=== PATIENT | female | born 1950 | race Caucasian/White ===

== ENCOUNTER 2017-10-22 10:53 | Inpatient (IN) ==
[2017-10-22 13:58] LABS: Apearance,Urine CLEAR (Clear); Basophils % 0.6 % (0.0-0.8); Bilirubin,Urine Negative (Negative); Blood, Urine Negative (Negative); Eosinophils % 0.6 % (0.00-10.9); Glucose,Urine (UA) Negative (Negative); Hematocrit 42.6 VOL% (35.7-47.0); Hemoglobin 14.1 GM/DL (12.0-16.0); Immature Granulocytes % 0.3 %; Immature Granulocytes Absolute 0.02 #; Ketones,Urine Negative (Negative); Lymphocytes # 1.9 10*3/uL (1.4-4.0); Lymphocytes % 29.3 % (21.3-54.2); Mean Corpuscular HGB Conc 33.1 GM/DL (32-36); Mean Corpuscular Hemoglobin 31 PG (27-34); Mean Corpuscular Volume 94.9 FL (87-102); Mean Platelet Volume 11.5 FL (9.6-12.0); Monocytes # 0.6 10*3/uL (0.11-0.8); Monocytes % 8.7 % (1.7-12.7); Neutrophils # 3.9 10*3/uL (1.4-7.4); Neutrophils % 60.5 % (38.7-73.9); Nitrite,Urine Negative (Negative); Platelet Count 210 T/CUMM (130-400); Protein,Urine Negative; Red Blood Count 4.49 MC/CUMM (3.8-5.5); Red Cell Distribution Width 13.2 % (9.3-17.3); Squamous Epithelial Cell,Urine Occasional /HPF (0-10); Urine Color Straw (Yellow); Urine Specific Gravity 1.002 (1.001-1.035); Urine Urobilinogen < 2.0 EU/DL (0.2-1.0); WBC,Urine <1 /HPF (0-6); White Blood Count 6.4 T/CUMM (4-12)
[2017-10-22 14:21] LABS: Alanine Aminotransferase 34 U/L (13-56); Albumin 4.5 G/DL (3.4-5.0); Alkaline Phosphatase 101 U/L (45-117); Aspartate Amino Transferase 27 U/L (0-37); Blood Urea Nitrogen 12 MG/DL (7-18); Glucose 146 MG/DL (74-106); Magnesium 2.2 MG/DL (1.8-2.4); Osmolality,Calculated 279.5 MOS/KG (273-304); Potassium 4.9 MMOL/L (3.5-5.1); Sodium 139 MMOL/L (136-145); Total Protein 7.1 G/DL (6.4-8.3); Troponin I Only < 0.015 NG/ML (0.00-0.045)
[2017-10-22] MEDS ORDERED: LACTULOSE 20 GM/30 ML UDCUP PO PRN (15:40)
[2017-10-22] MEDS ORDERED: ONDANSETRON 4 MG/2 ML VIAL IV PRN (15:40)
[2017-10-22] MEDS ORDERED: ACETAMINOPHEN 325 MG TABLET PO PRN (15:40)
[2017-10-22] MEDS: MULTIVITAMIN (CENTRUM) TABLET PO SCH (20:32)
[2017-10-22] MEDS: ASPIRIN EC 81 MG TABLET PO SCH (20:32)
[2017-10-22] MEDS: ENOXAPARIN 40 MG/0.4 ML SYRINGE SUBCUT SCH (20:32)
[2017-10-22] MEDS: OMEGA 3 ACID ETHYL ESTERS 1 GM CAPSULE PO SCH (20:32)
[2017-10-23] MEDS ORDERED: DIAZEPAM 5 MG TABLET PO ONE (05:00)
[2017-10-23] MEDS ORDERED: diphenhydrAMINE CAP 25 MG CAPSULE PO ONE (05:00)
[2017-10-23] MEDS: SODIUM CHLORIDE 0.45% 1,000 ML IV SCH ×2 (05:23→21:01)
[2017-10-23] MEDS ORDERED: HEPARIN/NACL 0.9% 2 UNITS/ML 2,000 ML IV ONE ×2 (07:16→11:52)
[2017-10-23] MEDS: PANTOPRAZOLE 40 MG TABLET PO SCH ×2 (07:25→08:41)
[2017-10-23] MEDS ORDERED: HYDROmorphone 2 MG/1 ML VIAL ONE ×2 (08:07→11:58)
[2017-10-23] MEDS ORDERED: MIDAZOLAM 2 MG/2 ML VIAL ONE ×2 (08:07→11:58)
[2017-10-23] MEDS ORDERED: LIDOCAINE 2% 20 ML VIAL ONE (08:07)
[2017-10-23 08:19] LABS: Basophils % 0.5 % (0.0-0.8); Eosinophils % 0.7 % (0.00-10.9); Hematocrit 39.2 VOL% (35.7-47.0); Hemoglobin 13.2 GM/DL (12.0-16.0); Immature Granulocytes % 0.7 %; Immature Granulocytes Absolute 0.04 #; Lymphocytes # 1.8 10*3/uL (1.4-4.0); Lymphocytes % 32.3 % (21.3-54.2); Mean Corpuscular HGB Conc 33.7 GM/DL (32-36); Mean Corpuscular Hemoglobin 31 PG (27-34); Mean Corpuscular Volume 91.4 FL (87-102); Mean Platelet Volume 11.1 FL (9.6-12.0); Monocytes # 0.5 10*3/uL (0.11-0.8); Neutrophils # 3.2 10*3/uL (1.4-7.4); Neutrophils % 56.8 % (38.7-73.9); Platelet Count 203 T/CUMM (130-400); Red Blood Count 4.29 MC/CUMM (3.8-5.5); Red Cell Distribution Width 13.3 % (9.3-17.3); White Blood Count 5.6 T/CUMM (4-12)
[2017-10-23 08:36] LABS: Calcium 9.1 MG/DL (8.5-10.1); Osmolality,Calculated 284.1 MOS/KG (273-304); Potassium 4.1 MMOL/L (3.5-5.1); Risk Ratio 2.94
[2017-10-23] MEDS ORDERED: LIDOCAINE 1% 20 ML VIAL ONE (11:52)
[2017-10-23] MEDS ORDERED: HEPARIN 5,000 UNIT/1 ML VIAL ONE (12:23)
[2017-10-23] MEDS ORDERED: NITROGLYCERIN SL 0.4 MG TABLET SL PRN (13:14)
[2017-10-23] MEDS ORDERED: ONDANSETRON 4 MG/2 ML VIAL IV PRN (13:14)
[2017-10-23] MEDS: COENZYME Q10 100 MG CAPSULE PO SCH (13:50)
[2017-10-23] MEDS ORDERED: METOPROLOL TARTRATE 25 MG TABLET ONE (14:53)
[2017-10-23] MEDS: METOPROLOL TARTRATE 25 MG TABLET PO SCH ×2 (14:57→21:02)
[2017-10-23] MEDS: OMEGA 3 ACID ETHYL ESTERS 1 GM CAPSULE PO SCH (21:02)
[2017-10-23] MEDS: ENOXAPARIN 40 MG/0.4 ML SYRINGE SUBCUT SCH (21:02)
[2017-10-23] MEDS: MULTIVITAMIN (CENTRUM) TABLET PO SCH (21:02)
[2017-10-23] MEDS: ASPIRIN EC 81 MG TABLET PO SCH (21:02)
[2017-10-24] MEDS: SODIUM CHLORIDE 0.45% 1,000 ML IV SCH ×3 (05:08→22:55)
[2017-10-24 06:14] LABS: Basophils % 0.4 % (0.0-0.8); Eosinophils # 0.1 10*3/uL (0.0-0.87); Eosinophils % 1.2 % (0.00-10.9); Hematocrit 35.8 VOL% (35.7-47.0); Hemoglobin 11.6 GM/DL (12.0-16.0); Immature Granulocytes % 0.4 %; Immature Granulocytes Absolute 0.04 #; Lymphocytes # 2.8 10*3/uL (1.4-4.0); Lymphocytes % 28.2 % (21.3-54.2); Mean Corpuscular HGB Conc 32.4 GM/DL (32-36); Mean Corpuscular Hemoglobin 31 PG (27-34); Mean Corpuscular Volume 95.5 FL (87-102); Mean Platelet Volume 11.4 FL (9.6-12.0); Monocytes # 0.8 10*3/uL (0.11-0.8); Monocytes % 8.3 % (1.7-12.7); Neutrophils # 6.2 10*3/uL (1.4-7.4); Neutrophils % 61.5 % (38.7-73.9); Platelet Count 201 T/CUMM (130-400); Red Blood Count 3.75 MC/CUMM (3.8-5.5); Red Cell Distribution Width 13.3 % (9.3-17.3); White Blood Count 10.1 T/CUMM (4-12)
[2017-10-24 06:42] LABS: Osmolality,Calculated 281.3 MOS/KG (273-304); Potassium 4.4 MMOL/L (3.5-5.1)
[2017-10-24 06:51] LABS: Calcium 9.3 MG/DL (8.5-10.1); Magnesium 2.2 MG/DL (1.8-2.4); Osmolality,Calculated 281.3 MOS/KG (273-304); Potassium 4.9 MMOL/L (3.5-5.1)
[2017-10-24 06:53] LABS: Troponin I Only 0.667 NG/ML (0.00-0.045)
[2017-10-24] MEDS: PANTOPRAZOLE 40 MG TABLET PO SCH (08:34)
[2017-10-24] MEDS: METOPROLOL TARTRATE 25 MG TABLET PO SCH ×2 (08:34→22:11)
[2017-10-24] MEDS: COENZYME Q10 100 MG CAPSULE PO SCH (08:34)
[2017-10-24] MEDS: HEPARIN DRIP 25,000 UNITS/500 ML PREMIX IV SCH (10:04)
[2017-10-24] MEDS ORDERED: CHLORHEXIDINE 4% SOLN 118 ML BOTTLE TOP SCH (15:00)
[2017-10-24] MEDS ORDERED: ALUMINUM/MAGNES/SIMETH MAX STR 30 ML UDCUP PO PRN (16:50)
[2017-10-24] MEDS: POLYETHYLENE GLYCOL POWDER 17 GM PACK PO SCH (22:10)
[2017-10-24] MEDS: ATORVASTATIN 80 MG TABLET PO SCH (22:11)
[2017-10-24] MEDS: OMEGA 3 ACID ETHYL ESTERS 1 GM CAPSULE PO SCH (22:11)
[2017-10-24] MEDS: ASPIRIN EC 81 MG TABLET PO SCH (22:11)
[2017-10-24] MEDS: MULTIVITAMIN (CENTRUM) TABLET PO SCH (22:11)
[2017-10-24] MEDS: CHLORHEXIDINE 0.12% ORAL RINSE 60 ML BOTTLE SWISH/SPIT SCH (22:37)
[2017-10-25 05:20] LABS: Basophils % 0.5 % (0.0-0.8); Eosinophils # 0.1 10*3/uL (0.0-0.87); Eosinophils % 0.7 % (0.00-10.9); Hematocrit 32.6 VOL% (35.7-47.0); Hemoglobin 10.6 GM/DL (12.0-16.0); Immature Granulocytes % 0.4 %; Immature Granulocytes Absolute 0.03 #; Lymphocytes # 2.5 10*3/uL (1.4-4.0); Lymphocytes % 30.5 % (21.3-54.2); Mean Corpuscular HGB Conc 32.5 GM/DL (32-36); Mean Corpuscular Hemoglobin 31 PG (27-34); Mean Corpuscular Volume 93.7 FL (87-102); Mean Platelet Volume 12.3 FL (9.6-12.0); Monocytes # 0.8 10*3/uL (0.11-0.8); Monocytes % 9.3 % (1.7-12.7); Neutrophils # 4.9 10*3/uL (1.4-7.4); Neutrophils % 58.6 % (38.7-73.9); Platelet Count 145 T/CUMM (130-400); Red Blood Count 3.48 MC/CUMM (3.8-5.5); Red Cell Distribution Width 13.4 % (9.3-17.3); White Blood Count 8.3 T/CUMM (4-12)
[2017-10-25 06:02] LABS: Magnesium 2.1 MG/DL (1.8-2.4); Osmolality,Calculated 285.8 MOS/KG (273-304); Potassium 3.4 MMOL/L (3.5-5.1)
[2017-10-25] MEDS: PANTOPRAZOLE 40 MG TABLET PO SCH (09:11)
[2017-10-25] MEDS: COENZYME Q10 100 MG CAPSULE PO SCH (09:11)
[2017-10-25] MEDS: METOPROLOL TARTRATE 25 MG TABLET PO SCH ×2 (09:11→21:26)
[2017-10-25] MEDS: CHLORHEXIDINE 0.12% ORAL RINSE 60 ML BOTTLE SWISH/SPIT SCH ×2 (09:11→21:28)
[2017-10-25] MEDS: CHLORHEXIDINE 4% SOLN 118 ML BOTTLE TOP SCH ×2 (15:45→21:33)
[2017-10-25] MEDS: SODIUM CHLORIDE 0.9% 1,000 ML IV SCH ×2 (16:45)
[2017-10-25] MEDS: HEPARIN DRIP 25,000 UNITS/500 ML PREMIX IV SCH (17:45)
[2017-10-25] MEDS: SODIUM CHLORIDE 0.45% 1,000 ML IV SCH (21:25)
[2017-10-25] MEDS: ASPIRIN EC 81 MG TABLET PO SCH (21:26)
[2017-10-25] MEDS: ATORVASTATIN 80 MG TABLET PO SCH (21:26)
[2017-10-25] MEDS: OMEGA 3 ACID ETHYL ESTERS 1 GM CAPSULE PO SCH (21:26)
[2017-10-25] MEDS: MULTIVITAMIN (CENTRUM) TABLET PO SCH (21:26)
[2017-10-25] MEDS: POLYETHYLENE GLYCOL POWDER 17 GM PACK PO SCH (21:28)
[2017-10-25] MEDS ORDERED: POTASSIUM CHLORIDE RIDER 10 MEQ in PREMIX 1 EACH IV PRN (23:41)
[2017-10-26 04:52] LABS: Basophils % 0.5 % (0.0-0.8); Eosinophils % 0.2 % (0.00-10.9); Hematocrit 27.4 VOL% (35.7-47.0); Hemoglobin 9.1 GM/DL (12.0-16.0); Immature Granulocytes % 0.3 %; Immature Granulocytes Absolute 0.03 #; Lymphocytes # 2.3 10*3/uL (1.4-4.0); Lymphocytes % 26.6 % (21.3-54.2); Mean Corpuscular HGB Conc 33.2 GM/DL (32-36); Mean Corpuscular Hemoglobin 31 PG (27-34); Mean Corpuscular Volume 93.8 FL (87-102); Mean Platelet Volume 11.5 FL (9.6-12.0); Neutrophils # 5.4 10*3/uL (1.4-7.4); Neutrophils % 61.4 % (38.7-73.9); Platelet Count 154 T/CUMM (130-400); Red Blood Count 2.92 MC/CUMM (3.8-5.5); Red Cell Distribution Width 13.5 % (9.3-17.3); White Blood Count 8.8 T/CUMM (4-12)
[2017-10-26] MEDS ORDERED: CEFUROXIME INJ 1,500 MG in SYRINGE 1 EACH IV ONE (05:00)
[2017-10-26] MEDS ORDERED: VANCOMYCIN 1,000 MG VIAL ONE (05:25)
[2017-10-26] MEDS ORDERED: PAPAVERINE 60 MG/2 ML VIAL ONE (05:25)
[2017-10-26] MEDS ORDERED: TISSUE ADHESIVE 1 EACH APPLICATOR TOP ONE (05:25)
[2017-10-26] MEDS ORDERED: LORazepam 0.5 MG TABLET PO ONE ×2 (05:30→06:00)
[2017-10-26] MEDS ORDERED: FAMOTIDINE 20 MG TABLET PO ONE (05:30)
[2017-10-26 05:32] LABS: Calcium 8.3 MG/DL (8.5-10.1); Magnesium 2.2 MG/DL (1.8-2.4); Osmolality,Calculated 289.6 MOS/KG (273-304); Potassium 3.7 MMOL/L (3.5-5.1)
[2017-10-26] MEDS: METOPROLOL TARTRATE 25 MG TABLET PO SCH (05:49)
[2017-10-26 06:05] LABS: Allen Test Positive; Pt O2 Delivery Device Room Air
[2017-10-26 06:07] LABS: ABG Base Excess 4.9 MMOL/L (-2.5-2.5); ABG HCO3 28.8 MMOL/L (20-26); ABG Oxygen Saturation 96.6 % (95-100); ABG PCO2 40.6 MM HG (35-48); ABG PH 7.463 (7.35-7.45); ABG PO2 79.4 MM HG (80-95); ABG TCO2 26.6 MMOL/L (23-27)
[2017-10-26 08:16] LABS: ABG Base Excess 2.6 MMOL/L (-2.5-2.5); ABG HCO3 24.7 MMOL/L (20-26); ABG PCO2 28.8 MM HG (35-48); ABG PH 7.552 (7.35-7.45); ABG PO2 456.2 MM HG (80-95); ABG TCO2 25.6 MMOL/L (23-27); Glucose Heart Surgery 107 MG/DL (74-106); Hemoglobin Heart Surgery 8.1 G/DL (12.0-16.0); Ionized Calcium Arterial 1.01 MMOL/L (1.21-1.46); PCO2 Patient Temp Arterial 28.8 MMHG; PH Patient Temp Arterial 7.552; PO2 Patient Temp Arterial 456.2 MM HG; Patient Temperature 37 CELCIUS; Sodium Heart/CVR 140 MMOL/L (135-145)
[2017-10-26 08:21] LABS: Apearance,Urine Slightly Hazy (Clear); Bilirubin,Urine Negative (Negative); Blood, Urine Negative (Negative); Glucose,Urine (UA) Negative (Negative); Ketones,Urine 20 mg/dL (Negative); Mucus,Urine Many /LPF (Occasional); Nitrite,Urine Negative (Negative); Protein,Urine 100 MG/DL; RBC,Urine 3 /HPF (0-4); Urine Color Yellow (Yellow); Urine Specific Gravity 1.023 (1.001-1.035); Urine Urobilinogen < 2.0 EU/DL (0.2-1.0); WBC,Urine <1 /HPF (0-6)
[2017-10-26 09:46] LABS: Hematocrit Heart Surgery 22.8 PERCENT (37-47); Hemoglobin Heart Surgery 7.3 G/DL (12.0-16.0); PCO2 Patient Temp Venous 24.5 MM HG; PH Patient Temp Venous 7.581; PO2 Patient Temp Venous 38.8 MM HG; Potassium Heart/CVR 4.9 MMOL/L (3.5-5.1); VBG Base Excess 1.6 MEQ/L (0-4); VBG HCO3 25.8 MEQ/L (24-28); VBG Oxygen Saturation 90.5 %; VBG PCO2 28.4 MMHG (41-51); VBG PH 7.534; VBG PO2 47.7 MMHG (17-40)
[2017-10-26 10:17] LABS: Hematocrit Heart Surgery 24.4 PERCENT (37-47); Hemoglobin Heart Surgery 7.8 G/DL (12.0-16.0); PH Patient Temp Venous 7.552; PO2 Patient Temp Venous 52.2 MM HG; Potassium Heart/CVR 4.5 MMOL/L (3.5-5.1); VBG Base Excess 3.4 MEQ/L (0-4); VBG HCO3 27.4 MEQ/L (24-28); VBG Oxygen Saturation 92.4 %; VBG PH 7.552; VBG PO2 52.2 MMHG (17-40)
[2017-10-26 10:47] LABS: Hematocrit Heart Surgery 25.6 PERCENT (37-47); Hemoglobin Heart Surgery 8.2 G/DL (12.0-16.0); PCO2 Patient Temp Venous 24.2 MM HG; PH Patient Temp Venous 7.585; PO2 Patient Temp Venous 41.6 MM HG; Potassium Heart/CVR 4.7 MMOL/L (3.5-5.1); VBG Base Excess 1.7 MEQ/L (0-4); VBG HCO3 25.9 MEQ/L (24-28); VBG PCO2 29.3 MMHG (41-51); VBG PH 7.523; VBG PO2 54.4 MMHG (17-40)
[2017-10-26 11:19] LABS: Hemoglobin Heart Surgery 7.6 G/DL (12.0-16.0); PCO2 Patient Temp Venous 29.4 MM HG; PH Patient Temp Venous 7.526; PO2 Patient Temp Venous 39.2 MM HG; Potassium Heart/CVR 4.9 MMOL/L (3.5-5.1); VBG Base Excess 1.2 MEQ/L (0-4); VBG HCO3 23.8 MEQ/L (24-28); VBG Oxygen Saturation 77.6 %; VBG PCO2 29.4 MMHG (41-51); VBG PH 7.526; VBG PO2 39.2 MMHG (17-40)
[2017-10-26 11:44] LABS: Hematocrit Heart Surgery 22.4 PERCENT (37-47); Hemoglobin Heart Surgery 7.2 G/DL (12.0-16.0); PCO2 Patient Temp Venous 37.1 MM HG; PH Patient Temp Venous 7.44; PO2 Patient Temp Venous 37.8 MM HG; Potassium Heart/CVR 4.6 MMOL/L (3.5-5.1); VBG Base Excess 1.1 MEQ/L (0-4); VBG HCO3 25.2 MEQ/L (24-28); VBG Oxygen Saturation 77.6 %; VBG PCO2 37.1 MMHG (41-51); VBG PH 7.44; VBG PO2 37.8 MMHG (17-40)
[2017-10-26] MEDS ORDERED: MAGNESIUM SULFATE 1 GM/2 ML VIAL ONE (12:14)
[2017-10-26] MEDS ORDERED: SODIUM BICARBONATE 50 MEQ/50 ML SYRINGE IV ONE (12:14)
[2017-10-26] MEDS ORDERED: ALBUMIN 25% 25 GM/100 ML VIAL IV ONE (12:14)
[2017-10-26] MEDS ORDERED: DEXTROSE 5% KCL 20 MEQ 20 MEQ/1,000 ML BAG IV ONE (12:14)
[2017-10-26] MEDS ORDERED: MANNITOL 12.5 GM/50 ML VIAL IV ONE (12:15)
[2017-10-26] MEDS ORDERED: ALBUMIN 5% 12.5 GM/250 ML VIAL IV ONE ×2 (12:15→14:48)
[2017-10-26] MEDS ORDERED: PROTAMINE SULFATE 50 MG/5 ML VIAL IV ONE (12:15)
[2017-10-26] MEDS ORDERED: FUROSEMIDE 20 MG/2 ML VIAL ONE (12:15)
[2017-10-26] MEDS ORDERED: HEPARIN 10,000 UNIT/10 ML VIAL ONE (12:15)
[2017-10-26] MEDS ORDERED: methylPREDNISolone SOD SUC 1,000 MG/8 ML VIAL ONE (12:15)
[2017-10-26 12:34] LABS: ABG Base Excess -0.8 MMOL/L (-2.5-2.5); ABG HCO3 23.8 MMOL/L (20-26); ABG PCO2 34.1 MM HG (35-48); ABG PH 7.437 (7.35-7.45); ABG TCO2 21.1 MMOL/L (23-27); Glucose Heart Surgery 249 MG/DL (74-106); Ionized Calcium Arterial 1.39 MMOL/L (1.21-1.46); PCO2 Patient Temp Arterial 34.1 MMHG; PH Patient Temp Arterial 7.437; Patient Temperature 37 CELCIUS; Potassium Heart/CVR 3.7 MMOL/L (3.5-5.1); Sodium Heart/CVR 139 MMOL/L (135-145)
[2017-10-26] MEDS ORDERED: FAMOTIDINE 20 MG/2 ML VIAL IV ONE (13:02)
[2017-10-26 13:11] LABS: ABG Base Excess -6.1 MMOL/L (-2.5-2.5); ABG HCO3 19.3 MMOL/L (20-26); ABG Oxygen Saturation 99.9 % (95-100); ABG PCO2 29.7 MM HG (35-48); ABG PH 7.393 (7.35-7.45); ABG TCO2 17.3 MMOL/L (23-27); Glucose Heart Surgery 239 MG/DL (74-106); Ionized Calcium Arterial 0.51 MMOL/L (1.21-1.46); PCO2 Patient Temp Arterial 29.7 MMHG; PH Patient Temp Arterial 7.393; Patient Temperature 37 CELCIUS; Potassium Heart/CVR 3.3 MMOL/L (3.5-5.1); Sodium Heart/CVR 146 MMOL/L (135-145)
[2017-10-26] MEDS ORDERED: THROMBIN TOPICAL (RECOMBINANT) 5,000 UNIT VIAL TOP ONE (13:13)
[2017-10-26 13:41] LABS: ABG Base Excess -6.5 MMOL/L (-2.5-2.5); ABG PCO2 41.3 MM HG (35-48); ABG PH 7.285 (7.35-7.45); Glucose Heart Surgery 264 MG/DL (74-106); PCO2 Patient Temp Arterial 41.3 MMHG; PH Patient Temp Arterial 7.285; Patient Temperature 37 CELCIUS; Potassium Heart/CVR 5.4 MMOL/L (3.5-5.1); Sodium Heart/CVR 144 MMOL/L (135-145)
[2017-10-26] MEDS ORDERED: ACETAMINOPHEN 650 MG SUPP RECTAL PRN (14:21)
[2017-10-26] MEDS ORDERED: MIDAZOLAM 2 MG/2 ML VIAL IV PRN (14:21)
[2017-10-26] MEDS ORDERED: CALCIUM CHLORIDE 1,000 MG/10 ML SYRINGE IV PRN (14:21)
[2017-10-26] MEDS ORDERED: INSULIN REGULAR 100 UNIT/ML IV PRN (14:21)
[2017-10-26] MEDS ORDERED: SODIUM CHLORIDE 0.9% 250 ML IV PRN (14:21)
[2017-10-26] MEDS ORDERED: POTASSIUM CHLORIDE RIDER 10 MEQ in PREMIX 1 EACH IV PRN (14:21)
[2017-10-26] MEDS ORDERED: MORPHINE 10 MG/1 ML VIAL IV PRN (14:21)
[2017-10-26] MEDS ORDERED: MAGNESIUM SULF RIDER 4 GM in PREMIX 1 EACH IV PRN (14:21)
[2017-10-26] MEDS ORDERED: DEXTROSE 50% 25 GM/50 ML VIAL IV PRN ×2 (14:21)
[2017-10-26] MEDS ORDERED: CHLORHEXIDINE 4% SOLN 118 ML BOTTLE TOP PRN (14:21)
[2017-10-26] MEDS ORDERED: INSULIN REGULAR DRIP 100 ML IV SCH (14:30)
[2017-10-26] MEDS ORDERED: SODIUM CHLORIDE 0.45% 1,000 ML IV SCH (14:30)
[2017-10-26] MEDS ORDERED: SUFentanil 250 MCG/5 ML AMP ONE (14:35)
[2017-10-26] MEDS ORDERED: MIDAZOLAM 10 MG/2 ML VIAL ONE (14:35)
[2017-10-26] MEDS ORDERED: PHENYLEPHRINE 50 MG/5 ML VIAL ONE (14:36)
[2017-10-26] MEDS ORDERED: DEXMEDETOMIDINE 200 MCG/2 ML VIAL IV ONE (14:36)
[2017-10-26] MEDS ORDERED: CALCIUM CHLORIDE 1,000 MG/10 ML VIAL IV ONE (14:36)
[2017-10-26] MEDS ORDERED: VECURONIUM 10 MG VIAL IV ONE (14:36)
[2017-10-26] MEDS ORDERED: ePHEDrine 50 MG/ML AMP ONE (14:38)
[2017-10-26] MEDS ORDERED: EPINEPHrine 1 MG/ML VIAL ONE (14:39)
[2017-10-26] MEDS ORDERED: HEPARIN/NACL 0.9% 2 UNITS/ML 500 ML IV ONE (14:39)
[2017-10-26] MEDS ORDERED: TRANEXAMIC ACID 1,000 MG/10 ML VIAL IV ONE (14:39)
[2017-10-26] MEDS ORDERED: SODIUM CHLORIDE 0.9% 500 ML IV ONE (14:40)
[2017-10-26] MEDS ORDERED: SODIUM CHLORIDE 0.9% 100 ML IV ONE (14:40)
[2017-10-26] MEDS ORDERED: SODIUM CHLORIDE 0.9% 2,000 ML IV ONE (14:40)
[2017-10-26] MEDS ORDERED: LACTATED RINGERS 2,000 ML IV ONE (14:40)
[2017-10-26] MEDS ORDERED: NITROGLYCERIN DRIP 50 MG/250 ML BOTTLE IV ONE (14:40)
[2017-10-26] MEDS ORDERED: ETOMIDATE 40 MG/20 ML VIAL IV ONE (14:41)
[2017-10-26] MEDS ORDERED: SEVOFLURANE 1 UNIT/15 MINUTE INH ONE (14:48)
[2017-10-26 14:50] LABS: ABG Base Excess -4.1 MMOL/L (-2.5-2.5); ABG Oxygen Saturation 99.9 % (95-100); ABG PCO2 44.1 MM HG (35-48); ABG PH 7.308 (7.35-7.45); ABG TCO2 20.5 MMOL/L (23-27); Glucose Heart Surgery 276 MG/DL (74-106); Hematocrit Heart Surgery 27.7 PERCENT (37-47); Hemoglobin Heart Surgery 8.9 G/DL (12.0-16.0); Potassium Heart/CVR 3.9 MMOL/L (3.5-5.1)
[2017-10-26 14:52] LABS: Basophils % 0.3 % (0.0-0.8); Eosinophils % 0.2 % (0.00-10.9); Hematocrit 26.6 VOL% (35.7-47.0); Immature Granulocytes % 0.6 %; Immature Granulocytes Absolute 0.06 #; Lymphocytes # 1.1 10*3/uL (1.4-4.0); Lymphocytes % 10.9 % (21.3-54.2); Mean Corpuscular HGB Conc 33.8 GM/DL (32-36); Mean Corpuscular Hemoglobin 31 PG (27-34); Mean Corpuscular Volume 91.7 FL (87-102); Mean Platelet Volume 11.2 FL (9.6-12.0); Monocytes # 0.5 10*3/uL (0.11-0.8); Monocytes % 5.2 % (1.7-12.7); Neutrophils # 8.6 10*3/uL (1.4-7.4); Neutrophils % 82.8 % (38.7-73.9); Platelet Count 117 T/CUMM (130-400); Red Cell Distribution Width 14.8 % (9.3-17.3); White Blood Count 10.4 T/CUMM (4-12)
[2017-10-26 14:58] LABS: INR 1.4; PT Patient Result 14.4 SECS; Partial Thromboplastin Time 39.4 SECS (0-40)
[2017-10-26] MEDS ORDERED: CALCIUM GLUCONATE 1,000 MG in SODIUM CHLORIDE 0.9% 100 ML IV ONE (15:10)
[2017-10-26 15:14] LABS: Blood Urea Nitrogen 9 MG/DL (7-18); Calcium 9.3 MG/DL (8.5-10.1); Glucose 275 MG/DL (74-106); Magnesium 1.9 MG/DL (1.8-2.4); Osmolality,Calculated 298.6 MOS/KG (273-304); Sodium 146 MMOL/L (136-145)
[2017-10-26] MEDS: SODIUM CHLORIDE 0.45% 1,000 ML IV SCH (15:32)
[2017-10-26] MEDS: POTASSIUM CHLORIDE RIDER 20 MEQ in PREMIX 1 EACH IV PRN ×4 (15:39→21:03)
[2017-10-26] MEDS: MAGNESIUM SULF RIDER 2 GM in PREMIX 1 EACH IV PRN (19:01)
[2017-10-26] MEDS: ALBUMIN 5% 12.5 GM in PREMIX 1 EACH IV PRN ×2 (19:35→19:47)
[2017-10-26 20:06] LABS: ABG HCO3 21.2 MMOL/L (20-26); ABG Oxygen Saturation 98.2 % (95-100); ABG PCO2 34.1 MM HG (35-48); ABG PH 7.411 (7.35-7.45); ABG TCO2 22.2 MMOL/L (23-27); Glucose Heart Surgery 126 MG/DL (74-106); Hemoglobin Heart Surgery 9.1 G/DL (12.0-16.0); Potassium Heart/CVR 3.4 MMOL/L (3.5-5.1)
[2017-10-26 21:38] LABS: ABG Base Excess -3.8 MMOL/L (-2.5-2.5); ABG HCO3 21.3 MMOL/L (20-26); ABG Oxygen Saturation 97.7 % (95-100); ABG PCO2 38.7 MM HG (35-48); ABG PH 7.359 (7.35-7.45); ABG PO2 140.7 MM HG (80-95); ABG TCO2 22.5 MMOL/L (23-27); Glucose Heart Surgery 118 MG/DL (74-106); Hemoglobin Heart Surgery 9.6 G/DL (12.0-16.0)
[2017-10-26 21:40] LABS: Potassium Heart/CVR 6.2 MMOL/L (3.5-5.1)
[2017-10-26] MEDS: CHLORHEXIDINE 0.12% ORAL RINSE 60 ML BOTTLE SWISH/SPIT SCH (22:31)
[2017-10-26] MEDS: CEFUROXIME INJ 1,500 MG in SYRINGE 1 EACH IV SCH (22:31)
[2017-10-26] MEDS: MORPHINE 2 MG/1 ML SYRINGE IV PRN (22:58)
[2017-10-27 00:26] LABS: ABG Base Excess -8.6 MMOL/L (-2.5-2.5); ABG HCO3 18.7 MMOL/L (20-26); ABG Oxygen Saturation 96.9 % (95-100); ABG PCO2 46.3 MM HG (35-48); ABG PH 7.224 (7.35-7.45); ABG PO2 118.1 MM HG (80-95); ABG TCO2 20.1 MMOL/L (23-27); Glucose Heart Surgery 169 MG/DL (74-106); Hemoglobin Heart Surgery 9.7 G/DL (12.0-16.0); Potassium Heart/CVR 4.7 MMOL/L (3.5-5.1)
[2017-10-27] MEDS ORDERED: FUROSEMIDE 40 MG/4 ML VIAL IV ONE ×3 (00:40→17:30)
[2017-10-27] MEDS ORDERED: SODIUM BICARBONATE 50 MEQ/50 ML SYRINGE IV ONE ×4 (01:00→09:39)
[2017-10-27] MEDS ORDERED: SODIUM BICARB INJ 50 MEQ in DEXTROSE 5% 1,000 ML IV SCH (01:00)
[2017-10-27] MEDS ORDERED: CALCIUM GLUCONATE 1,000 MG in SODIUM CHLORIDE 0.9% 100 ML IV ONE (01:09)
[2017-10-27] MEDS: ONDANSETRON 4 MG/2 ML VIAL IV PRN ×2 (01:32→06:24)
[2017-10-27] MEDS ORDERED: KETOROLAC 30 MG/1 ML VIAL IV ONE (01:45)
[2017-10-27 01:50] LABS: ABG Base Excess -6.2 MMOL/L (-2.5-2.5); ABG HCO3 19.3 MMOL/L (20-26); ABG Oxygen Saturation 96.9 % (95-100); ABG PCO2 47.4 MM HG (35-48); ABG PH 7.253 (7.35-7.45); ABG PO2 88.8 MM HG (80-95); ABG TCO2 19.6 MMOL/L (23-27); Glucose Heart Surgery 163 MG/DL (74-106); Hematocrit Heart Surgery 28.8 PERCENT (37-47); Hemoglobin Heart Surgery 9.3 G/DL (12.0-16.0); Potassium Heart/CVR 4.1 MMOL/L (3.5-5.1)
[2017-10-27] MEDS: SODIUM BICARB INJ 50 MEQ in SODIUM CHLORIDE 0.45% 1,000 ML IV SCH ×3 (01:52→19:30)
[2017-10-27] MEDS: ALBUMIN 5% 12.5 GM in PREMIX 1 EACH IV PRN ×4 (02:14→18:33)
[2017-10-27] MEDS: ALBUTEROL/IPRATROPIUM 3 ML NEB RESP TX SCH ×6 (02:28→23:17)
[2017-10-27] MEDS: PHENYLEPHRINE DRIP 40 MG/250 ML PREMIX IV SCH (02:43)
[2017-10-27] MEDS: POTASSIUM CHLORIDE RIDER 20 MEQ in PREMIX 1 EACH IV PRN ×3 (02:55→21:54)
[2017-10-27] MEDS: MORPHINE 2 MG/1 ML SYRINGE IV PRN (03:31)
[2017-10-27 03:47] LABS: ABG Base Excess -6.2 MMOL/L (-2.5-2.5); ABG HCO3 19.3 MMOL/L (20-26); ABG Oxygen Saturation 98.6 % (95-100); ABG PCO2 40.2 MM HG (35-48); ABG TCO2 18.6 MMOL/L (23-27); Glucose Heart Surgery 134 MG/DL (74-106); Hematocrit Heart Surgery 25.3 PERCENT (37-47); Hemoglobin Heart Surgery 8.1 G/DL (12.0-16.0); Potassium Heart/CVR 4.5 MMOL/L (3.5-5.1)
[2017-10-27 03:52] LABS: Basophils % 0.1 % (0.0-0.8); Hematocrit 23.3 VOL% (35.7-47.0); Immature Granulocytes % 0.4 %; Immature Granulocytes Absolute 0.04 #; Lymphocytes # 1.7 10*3/uL (1.4-4.0); Lymphocytes % 16.4 % (21.3-54.2); Mean Corpuscular HGB Conc 34.3 GM/DL (32-36); Mean Corpuscular Hemoglobin 30 PG (27-34); Mean Corpuscular Volume 88.6 FL (87-102); Mean Platelet Volume 12.4 FL (9.6-12.0); Monocytes # 0.9 10*3/uL (0.11-0.8); Monocytes % 8.9 % (1.7-12.7); Neutrophils # 7.8 10*3/uL (1.4-7.4); Neutrophils % 74.2 % (38.7-73.9); Red Blood Count 2.63 MC/CUMM (3.8-5.5); Red Cell Distribution Width 15.5 % (9.3-17.3); White Blood Count 10.5 T/CUMM (4-12)
[2017-10-27 04:05] LABS: Platelet Count 88 T/CUMM (130-400)
[2017-10-27 04:22] LABS: Calcium 6.6 MG/DL (8.5-10.1); Magnesium 1.8 MG/DL (1.8-2.4); Potassium 4.8 MMOL/L (3.5-5.1)
[2017-10-27] MEDS ORDERED: SODIUM CHLORIDE 0.9% 1,000 ML IV PRN (05:04)
[2017-10-27 05:48] LABS: Band Neutrophils 4 % (0-10); Lymphocytes 14 % (20-55); Microcytosis 1+; Segmented Neutrophils 77 % (50-85); Total Cells Counted 100
[2017-10-27 05:49] LABS: Hypochromasia Slight; Ovalocytes Slight; Platelet Estimate Decreased
[2017-10-27] MEDS: MAGNESIUM SULF RIDER 2 GM in PREMIX 1 EACH IV PRN ×2 (07:26→09:23)
[2017-10-27 08:03] LABS: ABG Base Excess -8.3 MMOL/L (-2.5-2.5); ABG HCO3 18.1 MMOL/L (20-26); ABG Oxygen Saturation 96.8 % (95-100); ABG PCO2 40.8 MM HG (35-48); ABG PH 7.266 (7.35-7.45); ABG PO2 103.6 MM HG (80-95); ABG TCO2 19.4 MMOL/L (23-27); Glucose Heart Surgery 145 MG/DL (74-106); Hemoglobin Heart Surgery 12.7 G/DL (12.0-16.0); Potassium Heart/CVR 4.2 MMOL/L (3.5-5.1)
[2017-10-27] MEDS: ASPIRIN EC 325 MG TABLET PO SCH (09:12)
[2017-10-27] MEDS: FUROSEMIDE 40 MG TABLET PO SCH (09:12)
[2017-10-27] MEDS: CEFUROXIME INJ 1,500 MG in SYRINGE 1 EACH IV SCH ×2 (09:13→22:05)
[2017-10-27] MEDS: CHLORHEXIDINE 0.12% ORAL RINSE 60 ML BOTTLE SWISH/SPIT SCH ×3 (09:23→21:15)
[2017-10-27] MEDS ORDERED: ONDANSETRON 4 MG/2 ML VIAL IV PRN (09:53)
[2017-10-27] MEDS: SODIUM CHLORIDE 0.9% 1,000 ML IV SCH (10:00)
[2017-10-27] MEDS: PANTOPRAZOLE 40 MG TABLET PO SCH (10:00)
[2017-10-27] MEDS: SODIUM CHLORIDE 0.45% 1,000 ML IV SCH ×2 (10:00)
[2017-10-27] MEDS: METOPROLOL TARTRATE 25 MG TABLET PO SCH (10:01)
[2017-10-27] MEDS: COENZYME Q10 100 MG CAPSULE PO SCH (10:01)
[2017-10-27] MEDS: CHLORHEXIDINE 4% SOLN 118 ML BOTTLE TOP SCH (10:01)
[2017-10-27] MEDS ORDERED: CALCIUM GLUCONATE 2,000 MG in SODIUM CHLORIDE 0.9% 100 ML IV ONE (11:00)
[2017-10-27 11:47] LABS: ABG Base Excess -6.8 MMOL/L (-2.5-2.5); ABG HCO3 18.9 MMOL/L (20-26); ABG PCO2 42.3 MM HG (35-48); ABG PH 7.279 (7.35-7.45); ABG TCO2 17.7 MMOL/L (23-27); Glucose Heart Surgery 169 MG/DL (74-106); Hematocrit Heart Surgery 38.9 PERCENT (37-47); Hemoglobin Heart Surgery 12.6 G/DL (12.0-16.0); Potassium Heart/CVR 3.8 MMOL/L (3.5-5.1)
[2017-10-27] MEDS: INSULIN REGULAR 100 UNIT/ML SUBCUT SCH ×3 (13:22→21:11)
[2017-10-27] MEDS: KETOROLAC 15 MG/1 ML VIAL IV PRN ×2 (13:23→19:37)
[2017-10-27] MEDS ORDERED: ASPIRIN EC 325 MG TABLET PO SCH (14:08)
[2017-10-27] MEDS ORDERED: FUROSEMIDE 40 MG TABLET PO SCH (14:08)
[2017-10-27] MEDS ORDERED: ATORVASTATIN 40 MG TABLET PO SCH (14:08)
[2017-10-27] MEDS ORDERED: FUROSEMIDE 40 MG/4 ML VIAL ONE (17:10)
[2017-10-27] MEDS ORDERED: PROMETHAZINE 25 MG/1 ML VIAL IM ONE (20:30)
[2017-10-27 20:50] LABS: ABG Base Excess -4.3 MMOL/L (-2.5-2.5); ABG HCO3 20.4 MMOL/L (20-26); ABG Oxygen Saturation 95.7 % (95-100); ABG PCO2 36.1 MM HG (35-48); ABG PH 7.369 (7.35-7.45); ABG PO2 87.9 MM HG (80-95); ABG TCO2 21.5 MMOL/L (23-27); Glucose Heart Surgery 193 MG/DL (74-106); Hemoglobin Heart Surgery 11.8 G/DL (12.0-16.0); Potassium Heart/CVR 3.4 MMOL/L (3.5-5.1)
[2017-10-27] MEDS: ATORVASTATIN 40 MG TABLET PO SCH (21:14)
[2017-10-28] MEDS: INSULIN REGULAR 100 UNIT/ML SUBCUT SCH ×6 (00:37→22:09)
[2017-10-28] MEDS: ALBUTEROL/IPRATROPIUM 3 ML NEB RESP TX SCH ×6 (02:36→23:14)
[2017-10-28 04:43] LABS: Basophils % 0.1 % (0.0-0.8); Hematocrit 32.9 VOL% (35.7-47.0); Immature Granulocytes % 0.5 %; Immature Granulocytes Absolute 0.07 #; Lymphocytes # 1.3 10*3/uL (1.4-4.0); Lymphocytes % 9.8 % (21.3-54.2); Mean Corpuscular HGB Conc 34.3 GM/DL (32-36); Mean Corpuscular Hemoglobin 30 PG (27-34); Mean Platelet Volume 12.8 FL (9.6-12.0); Monocytes # 1.4 10*3/uL (0.11-0.8); Monocytes % 10.9 % (1.7-12.7); Neutrophils # 10.1 10*3/uL (1.4-7.4); Neutrophils % 78.7 % (38.7-73.9); Platelet Count 101 T/CUMM (130-400); Red Blood Count 3.78 MC/CUMM (3.8-5.5); Red Cell Distribution Width 16.6 % (9.3-17.3); White Blood Count 12.8 T/CUMM (4-12)
[2017-10-28 04:51] LABS: Hemoglobin 11.3 GM/DL (12.0-16.0)
[2017-10-28 05:17] LABS: Osmolality,Calculated 301.3 MOS/KG (273-304); Potassium 3.9 MMOL/L (3.5-5.1)
[2017-10-28 05:30] LABS: Band Neutrophils 1 % (0-10); Hypochromasia Slight; Lymphocytes 8 % (20-55); Microcytosis 1+; Segmented Neutrophils 86 % (50-85); Total Cells Counted 100
[2017-10-28 05:31] LABS: Platelet Estimate Decreased
[2017-10-28] MEDS: POTASSIUM CHLORIDE RIDER 20 MEQ in PREMIX 1 EACH IV PRN ×2 (06:18→06:50)
[2017-10-28] MEDS: PHENYLEPHRINE DRIP 40 MG/250 ML PREMIX IV SCH (08:51)
[2017-10-28] MEDS: FUROSEMIDE 40 MG TABLET PO SCH (09:11)
[2017-10-28] MEDS: METOPROLOL TARTRATE 25 MG TABLET PO SCH ×2 (09:11→20:02)
[2017-10-28] MEDS: ASPIRIN EC 325 MG TABLET PO SCH (09:11)
[2017-10-28] MEDS: KETOROLAC 15 MG/1 ML VIAL IV PRN ×2 (09:12→15:04)
[2017-10-28] MEDS: CHLORHEXIDINE 0.12% ORAL RINSE 60 ML BOTTLE SWISH/SPIT SCH ×2 (09:17→21:55)
[2017-10-28] MEDS ORDERED: FUROSEMIDE 40 MG/4 ML VIAL ONE (10:02)
[2017-10-28] MEDS ORDERED: FUROSEMIDE 40 MG/4 ML VIAL IV ONE (10:11)
[2017-10-28] MEDS ORDERED: BISACODYL 10 MG SUPP RECTAL PRN (10:15)
[2017-10-28] MEDS ORDERED: DOCUSATE SODIUM 100 MG CAPSULE PO PRN (10:15)
[2017-10-28] MEDS ORDERED: METOPROLOL TARTRATE 5 MG/5 ML VIAL IV SCH (12:00)
[2017-10-28] MEDS: SODIUM BICARB INJ 50 MEQ in SODIUM CHLORIDE 0.45% 1,000 ML IV SCH (16:32)
[2017-10-28] MEDS: ATORVASTATIN 40 MG TABLET PO SCH (20:02)
[2017-10-29] MEDS: INSULIN REGULAR 100 UNIT/ML SUBCUT SCH ×6 (01:00→20:59)
[2017-10-29] MEDS: ALBUTEROL/IPRATROPIUM 3 ML NEB RESP TX SCH ×5 (03:15→20:10)
[2017-10-29 06:51] LABS: Basophils % 0.1 % (0.0-0.8); Hematocrit 33.2 VOL% (35.7-47.0); Hemoglobin 10.8 GM/DL (12.0-16.0); Immature Granulocytes % 0.5 %; Immature Granulocytes Absolute 0.06 #; Lymphocytes # 1.2 10*3/uL (1.4-4.0); Lymphocytes % 10.7 % (21.3-54.2); Mean Corpuscular HGB Conc 32.5 GM/DL (32-36); Mean Corpuscular Hemoglobin 30 PG (27-34); Mean Corpuscular Volume 90.7 FL (87-102); Mean Platelet Volume 12.2 FL (9.6-12.0); Monocytes # 1.3 10*3/uL (0.11-0.8); Neutrophils # 8.8 10*3/uL (1.4-7.4); Neutrophils % 77.7 % (38.7-73.9); Platelet Count 123 T/CUMM (130-400); Red Blood Count 3.66 MC/CUMM (3.8-5.5); Red Cell Distribution Width 16.8 % (9.3-17.3); White Blood Count 11.4 T/CUMM (4-12)
[2017-10-29 07:12] LABS: Giant Platelets Few; Hypochromasia 1+; Microcytosis Slight; Ovalocytes Slight; Platelet Estimate Normal
[2017-10-29 07:24] LABS: Calcium 7.7 MG/DL (8.5-10.1); Magnesium 2.5 MG/DL (1.8-2.4); Osmolality,Calculated 296.6 MOS/KG (273-304); Potassium 4.1 MMOL/L (3.5-5.1)
[2017-10-29 07:36] LABS: Magnesium 2.5 MG/DL (1.8-2.4); Osmolality,Calculated 298.4 MOS/KG (273-304); Potassium 4.1 MMOL/L (3.5-5.1)
[2017-10-29] MEDS: FUROSEMIDE 40 MG TABLET PO SCH (09:57)
[2017-10-29] MEDS: ASPIRIN EC 325 MG TABLET PO SCH (09:57)
[2017-10-29] MEDS: METOPROLOL TARTRATE 25 MG TABLET PO SCH (09:57)
[2017-10-29] MEDS: CHLORHEXIDINE 0.12% ORAL RINSE 60 ML BOTTLE SWISH/SPIT SCH ×2 (12:50→20:59)
[2017-10-29] MEDS ORDERED: FUROSEMIDE 40 MG/4 ML VIAL ONE (16:40)
[2017-10-29] MEDS ORDERED: FUROSEMIDE 40 MG/4 ML VIAL IM ONE (16:54)
[2017-10-29] MEDS: METOPROLOL TARTRATE 50 MG TABLET PO SCH (20:59)
[2017-10-29] MEDS: ATORVASTATIN 40 MG TABLET PO SCH (20:59)
[2017-10-30] MEDS: ALBUTEROL/IPRATROPIUM 3 ML NEB RESP TX SCH ×6 (00:36→20:45)
[2017-10-30] MEDS: INSULIN REGULAR 100 UNIT/ML SUBCUT SCH ×7 (01:04→23:53)
[2017-10-30 04:20] LABS: Basophils % 0.1 % (0.0-0.8); Hematocrit 31.7 VOL% (35.7-47.0); Hemoglobin 10.6 GM/DL (12.0-16.0); Immature Granulocytes % 0.6 %; Immature Granulocytes Absolute 0.07 #; Lymphocytes # 1.2 10*3/uL (1.4-4.0); Lymphocytes % 10.6 % (21.3-54.2); Mean Corpuscular HGB Conc 33.4 GM/DL (32-36); Mean Corpuscular Hemoglobin 30 PG (27-34); Mean Corpuscular Volume 90.3 FL (87-102); Mean Platelet Volume 12.7 FL (9.6-12.0); Monocytes # 1.3 10*3/uL (0.11-0.8); Monocytes % 11.6 % (1.7-12.7); Neutrophils # 8.7 10*3/uL (1.4-7.4); Neutrophils % 77.1 % (38.7-73.9); Platelet Count 144 T/CUMM (130-400); Red Blood Count 3.51 MC/CUMM (3.8-5.5); Red Cell Distribution Width 16.6 % (9.3-17.3); White Blood Count 11.3 T/CUMM (4-12)
[2017-10-30 04:39] LABS: INR 1.1; PT Patient Result 11.4 SECS
[2017-10-30 04:45] LABS: Band Neutrophils 1 % (0-10); Giant Platelets Few; Hypochromasia 1+; Lymphocytes 11 % (20-55); Microcytosis Slight; Ovalocytes Slight; Platelet Estimate Normal; Segmented Neutrophils 83 % (50-85); Total Cells Counted 100
[2017-10-30 04:51] LABS: Calcium 8.1 MG/DL (8.5-10.1); Magnesium 2.5 MG/DL (1.8-2.4); Osmolality,Calculated 292.7 MOS/KG (273-304); Potassium 3.8 MMOL/L (3.5-5.1)
[2017-10-30] MEDS: ASPIRIN EC 325 MG TABLET PO SCH (09:22)
[2017-10-30] MEDS: ENOXAPARIN 40 MG/0.4 ML SYRINGE SUBCUT SCH ×2 (09:22→21:39)
[2017-10-30] MEDS: METOPROLOL TARTRATE 50 MG TABLET PO SCH ×2 (09:22→21:39)
[2017-10-30] MEDS: FUROSEMIDE 40 MG TABLET PO SCH (09:23)
[2017-10-30] MEDS: CHLORHEXIDINE 0.12% ORAL RINSE 60 ML BOTTLE SWISH/SPIT SCH ×2 (09:24→21:39)
[2017-10-30] MEDS ORDERED: FUROSEMIDE 40 MG/4 ML VIAL IV ONE (13:03)
[2017-10-30] MEDS: WARFARIN 5 MG TABLET PO SCH (17:41)
[2017-10-30 19:01] LABS: Lymphocytes,Pleural Fluid 6 %; Monocytes,Pleural Fluid 1 %; Neutrophils,Pleural Fluid 93 %; RBC,Pleural Fluid > 100000 T/CUMM
[2017-10-30] MEDS: ATORVASTATIN 40 MG TABLET PO SCH (21:39)
[2017-10-31] MEDS: ALBUTEROL/IPRATROPIUM 3 ML NEB RESP TX SCH ×7 (00:24→23:55)
[2017-10-31] MEDS: INSULIN REGULAR 100 UNIT/ML SUBCUT SCH ×5 (04:11→21:06)
[2017-10-31 05:12] LABS: Basophils % 0.1 % (0.0-0.8); Eosinophils % 0.4 % (0.00-10.9); Hematocrit 33.1 VOL% (35.7-47.0); Immature Granulocytes % 0.7 %; Immature Granulocytes Absolute 0.08 #; Lymphocytes # 1.9 10*3/uL (1.4-4.0); Lymphocytes % 17.4 % (21.3-54.2); Mean Corpuscular HGB Conc 33.2 GM/DL (32-36); Mean Corpuscular Hemoglobin 30 PG (27-34); Mean Corpuscular Volume 90.4 FL (87-102); Mean Platelet Volume 11.8 FL (9.6-12.0); Monocytes # 1.3 10*3/uL (0.11-0.8); Monocytes % 11.6 % (1.7-12.7); Neutrophils # 7.7 10*3/uL (1.4-7.4); Neutrophils % 69.8 % (38.7-73.9); Platelet Count 186 T/CUMM (130-400); Red Blood Count 3.66 MC/CUMM (3.8-5.5); Red Cell Distribution Width 15.9 % (9.3-17.3)
[2017-10-31 05:18] LABS: INR 1.1; PT Patient Result 11.5 SECS
[2017-10-31 05:47] LABS: Hypochromasia 1+; Lymphocytes 14 % (20-55); Segmented Neutrophils 79 % (50-85); Total Cells Counted 100
[2017-10-31 05:48] LABS: Microcytosis 1+; Ovalocytes Slight; Platelet Estimate Adequate
[2017-10-31 06:07] LABS: Magnesium 2.3 MG/DL (1.8-2.4); Osmolality,Calculated 288.8 MOS/KG (273-304); Potassium 3.6 MMOL/L (3.5-5.1)
[2017-10-31] MEDS: ENOXAPARIN 40 MG/0.4 ML SYRINGE SUBCUT SCH ×2 (10:23→22:03)
[2017-10-31] MEDS: CHLORHEXIDINE 0.12% ORAL RINSE 60 ML BOTTLE SWISH/SPIT SCH ×2 (10:24→22:02)
[2017-10-31] MEDS: FUROSEMIDE 40 MG TABLET PO SCH (10:24)
[2017-10-31] MEDS: ASPIRIN EC 325 MG TABLET PO SCH (10:24)
[2017-10-31] MEDS: METOPROLOL TARTRATE 50 MG TABLET PO SCH (10:24)
[2017-10-31] MEDS: METOPROLOL SUCCINATE XL 50 MG TABLET PO SCH ×2 (11:54→22:01)
[2017-10-31] MEDS: LISINOPRIL 2.5 MG TABLET PO SCH ×2 (12:04→22:01)
[2017-10-31] MEDS: WARFARIN 5 MG TABLET PO SCH (17:33)
[2017-10-31] MEDS: ATORVASTATIN 40 MG TABLET PO SCH (22:01)
[2017-11-01] MEDS: INSULIN REGULAR 100 UNIT/ML SUBCUT SCH ×3 (01:17→09:25)
[2017-11-01] MEDS: ALBUTEROL/IPRATROPIUM 3 ML NEB RESP TX SCH ×2 (03:54→07:48)
[2017-11-01 04:55] LABS: Basophils % 0.1 % (0.0-0.8); Eosinophils # 0.1 10*3/uL (0.0-0.87); Eosinophils % 0.8 % (0.00-10.9); Hemoglobin 10.9 GM/DL (12.0-16.0); Immature Granulocytes % 0.8 %; Immature Granulocytes Absolute 0.09 #; Lymphocytes # 2.1 10*3/uL (1.4-4.0); Lymphocytes % 18.8 % (21.3-54.2); Mean Corpuscular HGB Conc 31.1 GM/DL (32-36); Mean Corpuscular Hemoglobin 29 PG (27-34); Mean Corpuscular Volume 94.3 FL (87-102); Mean Platelet Volume 11.8 FL (9.6-12.0); Monocytes # 1.3 10*3/uL (0.11-0.8); Monocytes % 12.2 % (1.7-12.7); Neutrophils # 7.4 10*3/uL (1.4-7.4); Neutrophils % 67.3 % (38.7-73.9); Platelet Count 221 T/CUMM (130-400); Red Blood Count 3.71 MC/CUMM (3.8-5.5); Red Cell Distribution Width 15.9 % (9.3-17.3)
[2017-11-01 05:03] LABS: INR 1.3; PT Patient Result 13.5 SECS
[2017-11-01 05:27] LABS: Magnesium 2.1 MG/DL (1.8-2.4); Osmolality,Calculated 288.8 MOS/KG (273-304); Potassium 3.5 MMOL/L (3.5-5.1)
[2017-11-01 08:20] VITALS: BP 147/71
[2017-11-01] MEDS: ASPIRIN EC 325 MG TABLET PO SCH (09:26)
[2017-11-01] MEDS: ENOXAPARIN 40 MG/0.4 ML SYRINGE SUBCUT SCH ×2 (09:26→10:28)
[2017-11-01] MEDS: LISINOPRIL 2.5 MG TABLET PO SCH (09:26)
[2017-11-01] MEDS: FUROSEMIDE 40 MG TABLET PO SCH (09:26)
[2017-11-01] MEDS: METOPROLOL SUCCINATE XL 50 MG TABLET PO SCH (09:26)
[2017-11-01] MEDS: CHLORHEXIDINE 0.12% ORAL RINSE 60 ML BOTTLE SWISH/SPIT SCH (09:27)
== END 2017-11-01 10:35 | disposition home health service (06) | DRG 217 ==
LOC: N.ED 10:53 → N.EDINP 14:38 → SUATTDRO 14:38 → N.EDINP 16:55 → N.TELES 17:04 → N.CC 10-23 14:40 → N.TELEN 10-24 17:42 → N.CVR 10-26 14:08 → N.ICU 10-27 15:02 → N.TELES 10-28 15:18
PROVIDERS: ADMIT Internal Medicine; ATTEND Internal Medicine
PROC: CABGAVR (ICD-10-PCS; 2017-10-26 06:52)